=== PATIENT | male | born 1940 | race Hispanic/Latino ===

== ENCOUNTER 2016-08-28 11:12 | Emergency (ER) | payer MEDICARE ==
[2016-08-28 11:56] VITALS: BP 148/78
--- NOTE | 2016-08-28 11:57 | Emergency Department Report ---
Chief Complaint: Nausea/Vomiting/Diarrhea Stated Complaint: POSS DEHYDRATION Time Seen by Provider: 08/28/16 11:53 - HPI History of Present Illness: PT c/o intermittent diarrhea since Wednesday or Wed. PT concerned that he may be dehydrated. PT was recently on antibiotics for an ear infection. - ROS Review of Systems: neg n/v Pos diarrhea - Exam Physical Exam: PT looks well, non toxic. abd soft and non tender. + bs MSE screening note: Focused history and physical exam performed. Due to findings the following was ordered: labs ED Disposition for MSE Condition: Stable
[2016-08-28 12:22] LABS: Hemoglobin 14.7 gm/dl (11.8-15.2); Mean Corpuscular HGB Conc 34 % (32-34); Mean Corpuscular Hemoglobin 33 pg (28-32); Mean Corpuscular Volume 100 fl (84-94); Platelet Count 154 K/mm3 (140-440); Red Cell Distribution Width 12.8 % (13.2-15.2); White Blood Count 5.6 K/mm3 (4.5-11.0)
[2016-08-28 12:56] LABS: Alanine Aminotransferase 45 units/L (7-56); Albumin/Globulin Ratio 1.3 %; Alkaline Phosphatase 70 units/L (35-129); Anion Gap 21 mmol/L; BUN/Creatinine Ratio 15.55; Bilirubin,Total 0.8 mg/dL (0.1-1.2); Blood Urea Nitrogen 14 mg/dL (9-20); Calcium 8.9 mg/dL (8.4-10.2); Carbon Dioxide 20 mmol/L (22-30); Chloride 95.1 mmol/L (98-107); Glucose 106 mg/dL (75-100); Potassium 3.8 mmol/L (3.6-5.0); Sodium 132 mmol/L (137-145); Total Protein 7.1 g/dL (6.3-8.2)
[2016-08-28 13:09] LABS: Basophils % (Manual) 0 % (0.0-1.8); Blastocytes % (Manual) 0 %; Eosinophils % (Manual) 0 % (0.0-4.3)
[2016-08-28 13:10] LABS: Anisocytosis Few; Diff Status Complete
[2016-08-28 13:41] LABS: Bacteria,Urine 1+ /HPF (Negative); Bilirubin,Urine NEG (Negative); Blood,Urine SM (Negative); Ketones,Urine TR mg/dL (Negative); Leukocyte Esterase,Urine NEG (Negative); Mucus,Urine 3+ /HPF; Nitrite,Urine NEG (Negative); Urobilinogen,Urine < 2.0 mg/dL (<2.0)
--- NOTE | 2016-08-30 19:47 | ED Elopement Review ---
ED Pt Elopement review - Results review Lab results: Laboratory Tests 08/28/16 08/28/16 08/28/16 12:09 12:09 12:09 WBC 5.6 RBC 4.40 Hgb 14.7 Hct 44.0 MCV 100 H MCH 33 H MCHC 34 RDW 12.8 L Plt Count 154 [place] % (Auto) Security Consultant Add Manual Diff Complete Total Counted 100 Seg Neuts % (Manual) 58.0 Band Neutrophils % 1.0 Lymphocytes % (Manual) 18.0 Reactive Lymphs % (Man) 0 Monocytes % (Manual) 23.0 H Eosinophils % (Manual) 0 Basophils % (Manual) 0 Metamyelocytes % 0 Myelocytes % 0 Promyelocytes % 0 Blast Cells % 0 Nucleated RBC % Not Reportable Seg Neutrophils # Man 3.2 Band Neutrophils # 0.1 Lymphocytes # (Manual) 1.0 L Abs React Lymphs (Man) 0.0 Monocytes # (Manual) 1.3 H Eosinophils # (Manual) 0.0 Basophils # (Manual) 0.0 Metamyelocytes # 0.0 Myelocytes # 0.0 Promyelocytes # 0.0 Blast Cells # 0.0 WBC Morphology Not Reportable Hypersegmented Neuts Not Reportable Hyposegmented Neuts Not Reportable Hypogranular Neuts Not Reportable Smudge Cells Not Reportable Toxic Granulation Not Reportable Toxic Vacuolation Not Reportable Dohle Bodies Not Reportable Pelger-Huet Anomaly Not Reportable Arnulfo Rods Not Reportable Platelet Estimate Not Reportable Clumped Platelets Not Reportable Plt Clumps, EDTA Not Reportable Large Platelets Not Reportable Giant Platelets Not Reportable Platelet Satelliting Not Reportable Plt Morphology Comment Not Reportable RBC Morphology Not Reportable Dimorphic RBCs Not Reportable Polychromasia Not Reportable Hypochromasia Not Reportable Poikilocytosis Not Reportable Anisocytosis Few Microcytosis Not Reportable Macrocytosis Not Reportable Spherocytes Not Reportable Pappenheimer Bodies Not Reportable Sickle Cells Not Reportable Target Cells Not Reportable Tear Drop Cells Not Reportable Ovalocytes Not Reportable Helmet Cells Not Reportable [place] Bodies Not Reportable [place] Rings Not Reportable [place] Cells Not Reportable Bite Cells Not Reportable Crenated Cell Not Reportable Elliptocytes Not Reportable Acanthocytes (Spur) Not Reportable Rouleaux Not Reportable Hemoglobin C Crystals Not Reportable Schistocytes Not Reportable Malaria parasites Not Reportable Wili Bodies Not Reportable Hem Pathologist Commnt No Sodium 132 L Potassium 3.8 Chloride 95.1 L Carbon Dioxide 20 L Anion Gap 21 BUN 14 Creatinine 0.9 Estimated GFR > 60 BUN/Creatinine Ratio 15.55 Glucose 106 H Calcium 8.9 Total Bilirubin 0.8 AST 58 H ALT 45 Alkaline Phosphatase 70 Total Protein 7.1 Albumin 4.0 Albumin/Globulin Ratio 1.3 Lipase 17 Urine Color Urine Turbidity Urine pH Ur Specific [place] Urine Protein Urine Glucose (UA) Urine Ketones Urine Blood Urine Nitrite Urine Bilirubin Urine Urobilinogen Ur Leukocyte Esterase Urine WBC (Auto) Urine RBC (Auto) U Epithel Cells (Auto) Urine Bacteria (Auto) Urine Mucus 08/28/16 Unknown WBC RBC Hgb Hct MCV MCH MCHC RDW Plt Count [place] % (Auto) Add Manual Diff Total Counted Seg Neuts % (Manual) Band Neutrophils % Lymphocytes % (Manual) Reactive Lymphs % (Man) Monocytes % (Manual) Eosinophils % (Manual) Basophils % (Manual) Metamyelocytes % Myelocytes % Promyelocytes % Blast Cells % Nucleated RBC % Seg Neutrophils # Man Band Neutrophils # Lymphocytes # (Manual) Abs React Lymphs (Man) Monocytes # (Manual) Eosinophils # (Manual) Basophils # (Manual) Metamyelocytes # Myelocytes # Promyelocytes # Blast Cells # WBC Morphology Hypersegmented Neuts Hyposegmented Neuts Hypogranular Neuts Smudge Cells Toxic Granulation Toxic Vacuolation Dohle Bodies Pelger-Huet Anomaly Arnulfo Rods Platelet Estimate Clumped Platelets Plt Clumps, EDTA Large Platelets Giant Platelets Platelet Satelliting Plt Morphology Comment RBC Morphology Dimorphic RBCs Polychromasia Hypochromasia Poikilocytosis Anisocytosis Microcytosis Macrocytosis Spherocytes Pappenheimer Bodies Sickle Cells Target Cells Tear Drop Cells Ovalocytes Helmet Cells Cole-[place]our[place] Bodies [place] Rings Zahida Cells Bite Cells Crenated Cell Elliptocytes Acanthocytes (Spur) Rouleaux Hemoglobin C Crystals Schistocytes Malaria parasites Wili Bodies Hem Pathologist Commnt Sodium Potassium Chloride Carbon Dioxide Anion Gap BUN Creatinine Estimated GFR BUN/Creatinine Ratio Glucose Calcium Total Bilirubin AST ALT Alkaline Phosphatase Total Protein Albumin Albumin/Globulin Ratio Lipase Urine Color Yellow Urine Turbidity Clear Urine pH 6.0 Ur Specific [place] 1.020 Urine Protein 30 mg/dl Urine Glucose (UA) Neg Urine Ketones Tr Urine Blood Sm Urine Nitrite Neg Urine Bilirubin Neg Urine Urobilinogen < 2.0 Ur Leukocyte Esterase Neg Urine WBC (Auto) 2.0 Urine RBC (Auto) 2.0 U Epithel Cells (Auto) < 1.0 Urine Bacteria (Auto) 1+ Urine Mucus 3+ - Call Back decision Pt Call Back Decision: No action required
== END 2016-08-28 19:50 | disposition left against medical advice (07) ==
LOC: ED 11:12
DX: R19.7 Diarrhea, unspecified (principal); Z53.21 Procedure and treatment not carried out due to patient leaving prior to being seen by health care provider
CPT/HCPCS: 36415; 80053; 81001; 83690; 85007; 85025

== ENCOUNTER 2017-02-17 00:33 | Emergency (ER) | payer MEDICARE ==
[2017-02-17 01:55] LABS: Basophils % (Auto) 0.5 % (0.0-1.8); Eosinophils % (Auto) 0.4 % (0.0-4.3); Hemoglobin 13.6 gm/dl (11.8-15.2); Mean Corpuscular HGB Conc 34 % (32-34); Mean Corpuscular Hemoglobin 35 pg (28-32); Mean Corpuscular Volume 102 fl (84-94); Platelet Count 170 K/mm3 (140-440); Red Blood Count 3.94 M/mm3 (3.65-5.03); Red Cell Distribution Width 12.9 % (13.2-15.2); White Blood Count 9.5 K/mm3 (4.5-11.0)
[2017-02-17 02:09] LABS: Anion Gap 21 mmol/L; BUN/Creatinine Ratio 22.22; Blood Urea Nitrogen 20 mg/dL (9-20); Calcium 9.2 mg/dL (8.4-10.2); Carbon Dioxide 22 mmol/L (22-30); Chloride 100.1 mmol/L (98-107); Glucose 139 mg/dL (75-100); Potassium 4.1 mmol/L (3.6-5.0); Sodium 139 mmol/L (137-145)
[2017-02-17 02:34] LABS: INR 1.9 (0.87-1.13)
--- NOTE | 2017-02-17 02:47 | Cat Scan Report ---
FINAL REPORT PROCEDURE: CT HEAD/BRAIN WO CON TECHNIQUE: Computerized tomography of the head was performed without contrast material. HISTORY: syncope COMPARISON: No prior studies are available for comparison. FINDINGS: Skull and scalp: Normal. Paranasal sinuses: Normal. Ventricles and subarachnoid spaces: Normal. Cerebrum: There is no evidence of an acute intracranial hemorrhage, hematoma, infarction, midline displacement or mass. Moderate atrophy and periventricular deep white matter changes. Old lacunar infarctions of the left basal ganglia are noted.. Cerebellum and brainstem: No evidence of hemorrhage, acute infarction or mass. Vasculature: Normal. Comments: None. IMPRESSION: There is no evidence of an acute intracranial process. Moderate atrophy and periventricular deep white matter changes are noted. 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
[2017-02-17 02:49] VITALS: BP 170/75
--- NOTE | 2017-02-17 03:08 | Emergency Department Report ---
HPI - General Chief Complaint: Fall Time Seen by Provider: 02/17/17 02:50 - HPI HPI: Room 19 The patient is a 77-year-old male presented with a chief complaint of fall. The patient states this evening at approximately 22:45 he was in the kitchen and then woke up on the floor. The patient states she does not remember falling. Patient denied preceding chest pain, shortness of breath, dizziness or palpitations. Patient acknowledges he lost consciousness. Patient states he currently feels okay. Family at bedside Location: [facility] [facility]CHNICIAN Duration: [see above] Quality: Fall/syncope Severity: Moderate Modifying factors: [see above] Context: [see above] Mode of transportation: [not driving] ED Past Medical Hx - Past Medical History Hx Hypertension: Yes Additional medical history: pt hx of stent placement - Surgical History Past Surgical History?: Yes Additional Surgical History: cabbage-2006 - Family History Family history: no significant - Social History Smoking Status: Never Smoker Substance Use Type: None - Medications Home Medications: Home Medications Medication Instructions Recorded Confirmed Last Taken Type AtorvaSTATin [Lipitor] 40 mg PO QHS 02/17/17 02/17/17 02/15/17 History Clopidogrel Bisulfate [Plavix] 75 mg PO QHS 02/17/17 02/17/17 02/15/17 History Cyclobenzaprine HCl [Flexeril 5 MG 5 mg PO TID 02/17/17 02/17/17 02/16/17 History TAB] Esomeprazole Magnesium [NexIUM] 20 mg PO QDAY 02/17/17 02/17/17 02/15/17 History Fenofibrate [Tricor] 145 mg PO QDAY 02/17/17 02/17/17 02/15/17 History Metoprolol [Lopressor TAB] 50 mg PO BID 02/17/17 02/17/17 02/16/17 History Warfarin [Coumadin] 5 mg PO QDAY 02/17/17 02/17/17 02/15/17 History ED Review of Systems ROS: Stated complaint: FALL Other details as noted in HPI Comment: All other systems reviewed and negative Constitutional: denies: chills, fever Eyes: denies: eye pain, eye discharge, vision change ENT: denies: ear pain, throat pain Respiratory: denies: cough, shortness of breath, wheezing Cardiovascular: denies: chest pain, palpitations Endocrine: no symptoms reported Gastrointestinal: denies: abdominal pain, nausea, diarrhea Genitourinary: denies: urgency, dysuria Musculoskeletal: denies: back pain, joint swelling, arthralgia Skin: denies: rash, lesions Neurological: denies: headache, weakness, paresthesias Psychiatric: denies: anxiety, depression Hematological/Lymphatic: denies: easy bleeding, easy bruising Physical Exam - Physical Exam Vital Signs: Vital Signs 02/17/17 02/17/17 02/17/17: 01:53 01:57 Temperature 97.5 F L Pulse Rate 87 86 86 Respiratory 16 18 16 Rate Blood Pressure 175/82 184/86 O2 Sat by Pulse 98 98 Oximetry 02/17/17 02:48 Temperature 97 F L Pulse Rate 86 Respiratory 18 Rate Blood Pressure 170/75 O2 Sat by Pulse Oximetry Physical Exam: GENERAL: The patient is well-developed well-nourished male lying on stretcher not appearing to be in acute distress. [] HEENT: Normocephalic. Atraumatic. Extraocular motions are intact. Patient has moist mucous membranes. NECK: Supple. No meningitic signs are noted. There is no adenopathy noted. CHEST/LUNGS: Clear to auscultation. There is no respiratory distress noted. HEART/CARDIOVASCULAR: Regular. There is no tachycardia. There is no gallop rub or murmur. ABDOMEN: Abdomen is soft, nontender. Patient has normal bowel sounds. There is no abdominal distention. SKIN: There is no rash. There is no edema. There is no diaphoresis. NEURO: The patient is awake, alert, and oriented. The patient is cooperative. The patient has no focal neurologic deficits. The patient has normal speech. Cranial nerves II through XII grossly intact, no drift. Moves all of family's well MUSCULOSKELETAL: There is no evidence of acute injury. ED Course Vital Signs 02/17/17 02/17/17 02/17/17: 01:53 01:57 Temperature 97.5 F L Pulse Rate 87 86 86 Respiratory 16 18 16 Rate Blood Pressure 175/82 184/86 O2 Sat by Pulse 98 98 Oximetry 02/17/17 02:48 Temperature 97 F L Pulse Rate 86 Respiratory 18 Rate Blood Pressure 170/75 O2 Sat by Pulse Oximetry ED Medical Decision Making - Lab Data Result diagrams: 02/17/17 01:35 02/17/17 01:35 Laboratory Tests 02/17/17 02/17/17 02/17/17 01:35 01:35 01:35 WBC 9.5 RBC 3.94 Hgb 13.6 Hct 40.0 MCV 102 H MCH 35 H MCHC 34 RDW 12.9 L Plt Count 170 Lymph % (Auto) 13.0 L [place] % (Auto) 9.7 H Eos % (Auto) 0.4 Baso % (Auto) 0.5 Lymph # 1.2 [place] # 0.9 H Eos # 0.0 Baso # 0.1 Seg Neutrophils % 76.4 H Seg Neutrophils # 7.3 PT 21.8 H INR 1.90 H Sodium 139 Potassium 4.1 Chloride 100.1 Carbon Dioxide 22 Anion Gap 21 BUN 20 Creatinine 0.9 Estimated GFR > 60 BUN/Creatinine Ratio 22.22 Glucose 139 H Calcium 9.2 - EKG Data -: EKG Interpreted by Me EKG shows normal: sinus rhythm Rate: normal - EKG Data When compared to previous EKG there are: previous EKG unavailable Interpretation: nonspecific ST-T wave ronaldo (T-wave inversions in leads 3, aVF, V2 ), other (right bundle branch block) - Radiology Data Radiology results: report reviewed (CT head), image reviewed (CT head) CT head (read by radiologist)-there is no evidence of an acute intracranial process. Moderate atrophy and periventricular deep white matter changes are noted. Old coronary infarction of the left basal ganglia - Medical Decision Making Explained to the patient and family at bedside that because the patient does not remember actually falling my concerns that he had a syncopal episode. I explained to syncope due to numerous things mane which were extremely dangerous and not necessarily caught in the emergency department. I explained to the patient that I recommend admission to the hospital for further monitoring especially given his cardiac history. Patient and family verbalized understanding but the patient does not wish to stay in the hospital. Patient verbalizes understanding of increased morbidity and/or mortality should the leave the hospital AGAINST MEDICAL ADVICE Patient is leaving AGAINST MEDICAL ADVICE - Differential Diagnosis syncope Critical care attestation.: If time is entered above; I have spent that time in minutes in the direct care of this critically ill patient, excluding procedure time. ED Disposition Clinical Impression: Syncope Disposition: DC-07 LEFT AGAINST MED ADVICE Is pt being admited?: No Does the pt Need Aspirin: No Condition: Undetermined Instructions: Syncope (ED) Referrals: PRIMARY CARE,MD [Primary Care Provider] - 3-5 Days Forms: AMA Form Time of Disposition: 03:11 (patient leaving AMA)
== END 2017-02-17 03:24 | disposition left against medical advice (07) ==
LOC: ED 00:33
DX: R55 Syncope and collapse (principal); I10 Essential (primary) hypertension; W18.30XA Fall on same level, unspecified, initial encounter; Y93.9 Activity, unspecified; Y92.9 Unspecified place or not applicable; Y99.9 Unspecified external cause status
CPT/HCPCS: 36415; 70450; 80048; 85025; 85610; 93005; 93010

== ENCOUNTER 2017-08-12 10:05 | Outpatient (CLI) | payer MEDICARE ==
--- NOTE | 2017-08-24 18:07 | Vascular Lab Report ---
CAROTID DUPLEX STUDY: RIGHT PSVEDV CCA PROX:988 CCA DIST:8312 ICA PROX:27201 ICA MID:9416 ICA DIST:9320 ECA: [id number] VERT: 67 10 LEFT PSVEDV CCA PROX:1028 CCA DIST:46373 ICA PROX:29557 ICA MID:52361 ICA DIST:7817 ECA: 1566 VERT: 57 6 REASON FOR EXAM: Hypertension, dizziness. COMMENTS ON THE RIGHT: Doppler frequency analysis is consistent with less then 50% diameter reduction of the internal carotid artery. No plaque is seen. The common carotid artery is patent. The external carotid artery is patent. The vertebral artery has antegrade flow. COMMENTS ON THE LEFT: Doppler frequency analysis is consistent with less than 50% diameter reduction of the internal carotid artery. No plaque is seen. The common carotid artery is patent. The external carotid artery is patent. The vertebral artery has antegrade flow. IMPRESSION: Normal carotid artery study.
== END 2017-08-12 10:06 | disposition home or self-care (01) ==
LOC: VAS 10:05
PROVIDERS: ATTEND Family Medicine Adult Medicine
DX: I10 Essential (primary) hypertension (principal); R09.89 Other specified symptoms and signs involving the circulatory and respiratory systems
CPT/HCPCS: 93880

== ENCOUNTER 2019-05-11 01:30 | Emergency (ER) | payer MEDICARE ==
[2019-05-11] MEDS ORDERED: ASPIRIN 325 MG TAB PO ONE (02:12)
--- NOTE | 2019-05-11 02:45 | XRay Report ---
CHEST 1 VIEW INDICATION: Chest Pain. COMPARISON: 01/05/2013. FINDINGS: Support devices: Pacemaker in satisfactory position. Heart: Within normal limits. Lungs/Pleura: Mild increased interstitial markings without localized infiltrate. Diminished lung volu mes. Additional findings: None. IMPRESSION: 1. Diminished lung volumes. 2. Increased interstitial markings are likely chronic. Signer Name: Sony Ngo MD Signed: 05/11/2019 2:40 AM Workstation Name: [id number]
[2019-05-11 03:33] LABS: Basophils # (Auto) 0.1 K/mm3 (0.0-0.1); Eosinophils % (Auto) 0.3 % (0.0-4.3); Hematocrit 41.7 % (35.5-45.6); Hemoglobin 14.2 gm/dl (11.8-15.2); Lymphocytes % (Auto) 14.9 % (13.4-35.0); Mean Corpuscular HGB Conc 34 % (32-34); Mean Corpuscular Volume 103 fl (84-94); Monocytes # (Auto) 0.6 K/mm3 (0.0-0.8); Platelet Count 155 K/mm3 (140-440); Red Blood Count 4.05 M/mm3 (3.65-5.03); Red Cell Distribution Width 12.7 % (13.2-15.2)
--- NOTE | 2019-05-11 03:38 | Emergency Department Report ---
HPI - General Chief Complaint: Chest Pain Time Seen by Provider: 05/11/19 03:10 - HPI HPI: Room 3 The patient is an 79-year-old male presenting with chief complaint of lightheadedness and hypertension. The patient states today his blood pressure elevated to a systolic of 210. Patient does not have a headache but states he felt lightheaded. The patient states yesterday he had pain in his left on the left proximal 30-45 minutes but has since resolved. Patient denied ever having chest pain, pressure or tightness, heaviness or discomfort of any type. She denied ever having shortness of breath, nausea/vomiting or diaphoresis. Location: [See above] Duration: [See above] Quality: [See above] Severity: [See above] Timing: [See above] Context: [See above] Modifying factors: [See above] Associated signs and symptoms: [see above] ED Past Medical Hx - Past Medical History Previous Medical History?: Yes Hx Hypertension: Yes Additional medical history: pt hx of stent placement - Surgical History Past Surgical History?: Yes Hx Coronary Stent: Yes Hx Open Heart Surgery: Yes (four-vessel bypass 2006) Hx Cholecystectomy: Yes Additional Surgical History: Pace Maker - Family History Family history: no significant - Social History Smoking Status: Former Smoker (none 35 years) Substance Use Type: None - Medications Home Medications: Home Medications Medication Instructions Recorded Confirmed Last Taken Type AtorvaSTATin [Lipitor] 40 mg PO QHS 02/17/17 05/11/19 02/15/17 History Clopidogrel Bisulfate [Plavix] 75 mg PO QHS 02/17/17 05/11/19 02/15/17 History Fenofibrate [Tricor] 145 mg PO QDAY 02/17/17 05/11/19 02/15/17 History Warfarin [Coumadin] 5 mg PO QDAY 02/17/17 05/11/19 02/15/17 History Levocetirizine Dihydrochloride 1 tab PO DAILY 05/11/19 05/11/19 Unknown History [Xyzal] Metaxalone [Skelaxin] 1 tab PO TID 05/11/19 05/11/19 Unknown History Montelukast [Singulair] 1 tab PO DAILY 05/11/19 05/11/19 Unknown History Promethazine [Phenergan] 1 tab PO Q6HR PRN 05/11/19 05/11/19 Unknown History Tamsulosin [Flomax] 1 tab PO HS 05/11/19 05/11/19 Unknown History carvediloL [Coreg] 1 tab PO BID 05/11/19 05/11/19 Unknown History ED Review of Systems ROS: Stated complaint: HIGH BP Other details as noted in HPI Constitutional: denies: diaphoresis Eyes: denies: eye pain ENT: denies: throat pain Respiratory: denies: shortness of breath Cardiovascular: denies: chest pain Endocrine: no symptoms reported Gastrointestinal: nausea. denies: vomiting Genitourinary: denies: dysuria Musculoskeletal: denies: back pain Neurological: other (lightheadedness). denies: headache Physical Exam - Physical Exam Vital Signs: Vital Signs 05/11/19 05/11/19 01:57 02:57 Temperature 97.7 F 97.8 F Pulse Rate 96 H 88 Respiratory 20 20 Rate Blood Pressure 178/77 Blood Pressure 164/68 [Left] O2 Sat by Pulse 96 95 Oximetry Physical Exam: GENERAL: The patient is well-developed well-nourished male lying on stretcher not appearing to be in acute distress. [] HEENT: Normocephalic. Atraumatic. Extraocular motions are intact. Patient has moist mucous membranes. NECK: Supple. Trachea midline CHEST/LUNGS: Clear to auscultation. There is no respiratory distress noted. HEART/CARDIOVASCULAR: Regular. There is no tachycardia. There is no gallop rub or murmur. ABDOMEN: Abdomen is soft, nontender. Patient has normal bowel sounds. There is no abdominal distention. SKIN: There is no rash. There is no edema. There is no diaphoresis. NEURO: The patient is awake, alert, and oriented. The patient is cooperative. The patient has no focal neurologic deficits. The patient has normal speech. Cranial nerves II through XII grossly intact, no drift MUSCULOSKELETAL: There is no evidence of acute injury. ED Course Vital Signs 05/11/19 05/11/19 01:57 02:57 Temperature 97.7 F 97.8 F Pulse Rate 96 H 88 Respiratory 20 20 Rate Blood Pressure 178/77 Blood Pressure 164/68 [Left] O2 Sat by Pulse 96 95 Oximetry ED Medical Decision Making - Lab Data Result diagrams: 05/11/19 02:29 05/11/19 02:29 Laboratory Tests 05/11/19 05/11/19 05/11/19 02:29 02:29 03:56 WBC 7.0 RBC 4.05 Hgb 14.2 Hct 41.7 MCV 103 H MCH 35 H MCHC 34 RDW 12.7 L Plt Count 155 Lymph % (Auto) 14.9 [place] % (Auto) 9.0 H Eos % (Auto) 0.3 Baso % (Auto) 1.0 Lymph # 1.0 L [place] # 0.6 Eos # 0.0 Baso # 0.1 Seg Neutrophils % 74.8 H Seg Neutrophils # 5.2 PT 39.3 H INR 4.17 H APTT 48.9 H Sodium 139 Potassium 3.8 Chloride 104.3 Carbon Dioxide 21 L Anion Gap 18 BUN 14 Creatinine 0.8 Estimated GFR > 60 BUN/Creatinine Ratio 18 Glucose 173 H Calcium 9.2 Troponin T < 0.010 - EKG Data -: EKG Interpreted by Me EKG shows normal: sinus rhythm Rate: normal - EKG Data When compared to previous EKG there are: previous EKG unavailable Interpretation: other (right bundle-branch block) - Radiology Data Radiology results: report reviewed (chest x-ray, CT head, CT abdomen and pelvis), image reviewed (chest x-ray, CT head, CT abdomen and pelvis) interpreted by me: Chest x-ray-no focal infiltrate, no pneumothorax [address] [address] XRay Report Signed Patient: NEFTALY AVILES MR#: [id number] : 1940 Acct:[id number] Age/Sex: 79 / M ADM Date: 05/11/19 Loc: ED Attending Dr: Ordering Physician: NIR ZAIDI MD Date of Service: 05/11/19 Procedure(s): XR chest 1V ap Accession Number(s): [id number] cc: ED MD DEJUAN Fluoro Time In Minutes: CHEST 1 VIEW INDICATION: Chest Pain. COMPARISON: 01/05/2013. FINDINGS: Support devices: Pacemaker in satisfactory position. Heart: Within normal limits. Lungs/Pleura: Mild increased interstitial markings without localized infiltrate. Diminished lung volumes. Additional findings: None. IMPRESSION: 1. Diminished lung volumes. 2. Increased interstitial markings are likely chronic. Signer Name: Sony Ngo MD Signed: 05/11/2019 2:40 AM Workstation Name: [id number] Transcribed By: ES Dictated By: Sony Ngo MD Electronically Authenticated By: Sony Ngo MD Signed Date/Time: 05/11/19 0240 DD/ 8 TD/TT: [address] [address] Cat Scan Report Signed Patient: NEFTALY AVILES MR#: [id number] : 1940 Acct:[id number] Age/Sex: 79 / M ADM Date: 05/11/19 Loc: ED Attending Dr: Ordering Physician: LAKESHA ORTIZ MD Date of Service: 05/11/19 Procedure(s): CT head/brain wo con Accession Number(s): [id number] cc: LAKESHA ORTIZ MD CT head/brain wo con INDICATION: hypertension, lightheadedness. TECHNIQUE: All CT scans at this location are performed using the following dose modulation technique: Automated exposure control. CONTRAST: None. COMPARISON: None available. FINDINGS: The ventricular system is appropriate in size and configuration without midline shift accounting for diffuse cerebral atrophy. Low density within the periventricular white matter is typical of chronic small vessel ischemic change. Negative for mass, stroke or hemorrhage. Imaged portions the paranasal sinuses are clear. IMPRESSION: Mild chronic small vessel ischemic change and diffuse cerebral atrophy. Signer Name: oSny Ngo MD Signed: 05/11/2019 4:38 AM Workstation Name: [id number] Transcribed By: ES Dictated By: Sony Ngo MD Electronically Authenticated By: Sony Ngo MD Signed Date/Time: 05/11/19 0438 DD/ 0435 TD/TT: [address] [address] Cat Scan Report Signed Patient: NEFTALY AVILES MR#: [id number] : 1940 Acct:[id number] Age/Sex: 79 / M ADM Date: 05/11/19 Loc: ED Attending Dr: Ordering Physician: LAKESHA ORTIZ MD Date of Service: 05/11/19 Procedure(s): CT abdomen pelvis wo con Accession Number(s): [id number] cc: LAKESHA ORTIZ MD CT abdomen pelvis wo con INDICATION: intermittent lower abdominal pain. TECHNIQUE: All CT scans at this location are performed using the following dose modulation technique: Automated exposure control. CONTRAST: None. COMPARISON: None available. CT ABDOMEN: The parenchymal organs are unremarkable in appearance other than calcified granulomas of the liver and spleen. Negative for abdominal mass, fluid or inflammation. The bowel is not dilated or thickened. A hiatal her isaac is moderate/large. Status post previous cholecystectomy. Negative for biliary dilatation. The aorta contains atherosclerotic calcification. CT PELVIS: Negative for mass, fluid collection or inflammation. Noninflamed colonic diverticulosis is present. The prostate gland contains mild calcification. Multilevel chronic appearing vertebral wedging is present. IMPRESSION: 1. Noninflamed colonic diverticulosis. 2. Negative for obstruction or localized inflammation. Signer Name: Sony Ngo MD Signed: 05/11/2019 4:35 AM Workstation Name: [id number] Transcribed By: ES Dictated By: Sony manzano MD Electronically Authenticated By: Sony Ngo MD Signed Date/Time: 05/11/19434 DD/ 0 TD/TT: - Differential Diagnosis hypertensive urgency, intercranial mass, intracranial hemorrhage Critical care attestation.: If time is entered above; I have spent that time in minutes in the direct care of this critically ill patient, excluding procedure time. 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
[2019-05-11 03:46] LABS: BUN/Creatinine Ratio 18; Blood Urea Nitrogen 14 mg/dL (9-20); Calcium 9.2 mg/dL (8.4-10.2); Hemolysis Index 27
[2019-05-11 04:00] VITALS: BP 156/75
[2019-05-11 04:26] LABS: INR 4.17 (0.87-1.13)
[2019-05-11 04:27] LABS: Partial Thromboplastin Time 48.9 Sec. (24.2-36.6)
--- NOTE | 2019-05-11 04:39 | Cat Scan Report ---
CT abdomen pelvis wo con INDICATION: intermittent lower abdominal pain. TECHNIQUE: All CT scans at this location are performed using the following dose modulation technique: Automated exposure control. CONTRAST: None. COMPARISON: None available. CT ABDOMEN: The parenchymal organs are unremarkable in appearance other than calcified granulomas of the liver and spleen. Negative for abdominal mass, fluid or inflammation. The bowel is not dilated or thickened. A hiatal hernia is moderate/large. Status post previous cholecystectomy. Negative for biliary dilatation. The aorta contains atherosclerotic calcification. CT PELVIS: Negative for mass, fluid collection or inflammation. Noninflamed colonic diverticulosis is present. The prostate gland contains mild calcification. Multilevel chronic appearing vertebral wedging is pre sent. IMPRESSION: 1. Noninflamed colonic diverticulosis. 2. Negative for obstruction or localized inflammation. Signer Name: Sony Ngo MD Signed: 05/11/2019 4:35 AM Workstation Name: [id number]
--- NOTE | 2019-05-11 04:43 | Cat Scan Report ---
CT head/brain wo con INDICATION: hypertension, lightheadedness. TECHNIQUE: All CT scans at this location are performed using the following dose modulation technique: Automated exposure control. CONTRAST: None. COMPARISON: None available. FINDINGS: The ventricular system is appropriate in size and configuration without midline shift accou nting for diffuse cerebral atrophy. Low density within the periventricular white matter is typical of chronic small vessel ischemic change. Negative for mass, stroke or hemorrhage. Imaged portions the paranasal sinuses are clear. IMPRESSION: Mild chronic small vessel ischemic change and diffuse cerebral atrophy. Signer Name: Sony Ngo MD Signed: 05/11/2019 4:38 AM Workstation Name: [id number]
== END 2019-05-11 05:00 | disposition home or self-care (01) ==
LOC: ED 01:30
DX: I16.0 Hypertensive urgency (principal); Z95.5 Presence of coronary angioplasty implant and graft; Z90.49 Acquired absence of other specified parts of digestive tract; Z87.891 Personal history of nicotine dependence; Z88.0 Allergy status to penicillin; Z88.4 Allergy status to anesthetic agent; Z79.899 Other long term (current) drug therapy
CPT/HCPCS: 36415; 70450; 71045; 74176; 80048; 84484; 85025; 85610; 85730; 93005; 93010

== ENCOUNTER 2020-01-24 20:55 | Emergency (ER) | payer MEDICARE | END 2020-01-24 21:34 | disposition left against medical advice (07) | LOC: ED 20:55 | DX: I10 Essential (primary) hypertension (principal); Z53.21 Procedure and treatment not carried out due to patient leaving prior to being seen by health care provider ==

== ENCOUNTER 2020-03-07 00:08 | Emergency (ER) | payer MEDICARE | END 2020-03-07 00:20 | disposition left against medical advice (07) | LOC: ED 00:08 | DX: I10 Essential (primary) hypertension (principal); Z53.21 Procedure and treatment not carried out due to patient leaving prior to being seen by health care provider ==

== ENCOUNTER 2021-12-04 10:41 | Outpatient (CLI) | payer MEDICARE ==
--- NOTE | 2021-12-04 14:48 | Ultrasound Report ---
BILATERAL DIGITAL DIAGNOSTIC MAMMOGRAM WITH CAD , 12/04/2021 LEFT LIMITED BREAST ULTRASOUND CLINICAL INFORMATION / INDICATION: Pain in the left axilla and itching around the left nipple TECHNIQUE: Digital bilateral mammographic imaging was performed. Limited ultrasound was performed. Th is examination was interpreted with the benefit of Computer-Aided Detection (CAD) analysis. COMPARISON: None FINDINGS: Breast Density: The breasts are almost entirely fatty. MAMMOGRAPHIC FINDINGS: No dominant mass, suspicious calcifications, or architectural distortion in ei ther breast. No mammographic abnormality is noted in the left axilla that would explain the patient's pain. No periareolar mammographic abnormalities are noted. ULTRASOUND FINDINGS: Targeted ultrasound evaluation was performed of the area of interest. Sonograp hic evaluation of the left breast was targeted to the left axilla. Normal lymph nodes are noted. No s onographic abnormality is seen that would explain the patient's pain. IMPRESSION: No mammographic or sonographic evidence of malignancy. Follow up recommendation: No recall. BI-RADS Category 1: NEGATIVE. A "normal" or negative report should not discourage follow up or biopsy of a clinically significant f inding. A written summary of these findings will be mailed to the patient. The patient will be entered into a mammography reporting system which will generate a reminder letter for the patient's next appointmen t at the appropriate interval. According to the [employer], yearly mammograms are recommended starting at age 40 and continuing as long as a woman is in good health. Breast MRI is recommended for women with an moises roximately 20-25% or greater lifetime risk of breast cancer, including women with a strong family his tory of breast or ovarian cancer and women who have been treated for Hodgkin's disease. Signer Name: Nyasia Cobos MD, Ph.D Signed: 12/04/2021 2:44 PM Workstation Name: [id number]
== END 2021-12-04 10:42 | disposition home or self-care (01) ==
LOC: US 10:41
PROVIDERS: ATTEND Family Medicine Adult Medicine
DX: N64.4 Mastodynia (principal)
CPT/HCPCS: 77066